=== PATIENT | female | born 1950 | race Caucasian/White ===

== ENCOUNTER 2020-05-19 13:19 | Inpatient (IN) | payer MEDICARE, OTHER ==
[~2020-05-19] VITALS: Ht 172.7 cm; Wt 66.5 kg
[2020-05-19] MEDS ORDERED: SODIUM CHLORIDE 0.9% 1,000 ML IV ONE ×2 (13:45)
[2020-05-19 14:40] LABS: Urine Bacteria MANY /hpf (None Seen); Urine Blood Negative /uL (Negative); Urine Mucus FEW (None Seen); Urine Specific Gravity 1.018 (1.001-1.035); Urine WBC 3 /hpf (0 - 5)
[2020-05-19 15:37] LABS: Basophils # (auto) 0.1 10 ^3/uL (0-0.2); Basophils % (auto) 0.7 % (0.0-2.0); Eosinophils # (auto) 0 10 ^3/uL (0-0.8); Eosinophils % (auto) 0.1 % (0.0-7.0); Hematocrit 41.4 % (36.0-46.0); Hemoglobin 13.7 g/dL (12.2-16.2); Lymphocytes # (auto) 0.6 10 ^3/uL (0.4-5.4); Lymphocytes % (auto) 7.1 % (10.0-50.0); Mean Corpuscular Hemoglobin 30.4 pg (28.0-32.0); Mean Corpuscular Hgb Conc. 33.1 g/dL (32.0-36.0); Mean Corpuscular Volume 91.7 fL (80.0-100.0); Monocytes # (auto) 0.7 10 ^3/uL (0-1.3); Monocytes % (auto) 7.8 % (0.0-12.0); Neutrophils # (auto) 7.5 10 ^3/uL (1.6-8.6); Neutrophils % (auto) 84.3 % (37.0-80.0); Nucleated Red Blood Cells % 0.3 %; Platelet Count (auto) 309 10^3/uL (140-450); Red Blood Cells 4.52 10^6/uL (4.0-5.20); Red Cell Distribution Width 15.6 % (11.8-14.3); White Blood Cell 8.9 10^3/uL (4.4-10.8)
[2020-05-19 15:57] LABS: INR 1.03 (0.9-1.15); Partial Thromboplastin Time 21.4 sec (23.0-31.2)
[2020-05-19 15:59] LABS: Albumin 3.1 g/dL (3.4-5.0); Calcium 8.7 mg/dL (8.5-10.1)
[2020-05-19 16:02] LABS: BUN/Creatinine Ratio 10.6; Bilirubin, Total 0.7 mg/dL (0.2-1.0); Total Protein 6.5 g/dL (6.4-8.2)
[2020-05-19 16:06] LABS: Potassium 2.9 mmol/L (3.5-5.1)
[2020-05-19] MEDS ORDERED: cefTRIAXone 1GM/50ML D5W 50 ML IV ONE (16:15)
[2020-05-19] MEDS: POTASSIUM CHL 20MEQ/100ML 100 ML IV SCH ×2 (16:28→22:51)
[2020-05-19] MEDS ORDERED: MORPHINE SULF INJ 2 MG/ML SYRINGE 1ML IV PRN ×2 (16:30→19:30)
[2020-05-19] MEDS ORDERED: NITROGLYCERIN 0.4 MG SL TAB SL PRN ×2 (16:30→19:30)
[2020-05-19] MEDS ORDERED: IOHEXOL 300 MG/ML 100ML BOTTLE IJ ONE (17:21)
[2020-05-19] MEDS ORDERED: POTASSIUM CHLORIDE 40 MEQ, LIDOCAINE 1% (LOCAL ANESTH.) 4 ML in SODIUM CHL 0.9% 250 ML IV ONE (18:00)
--- NOTE | 2020-05-19 18:08 | NUR ---
OBTAINED PATIENTS HISTORY AND ADMIT INFORMATION FROM JOSE RAMON. HE WILL CALL TOMORROW WITH LIST OF MEDICATIONS. [facility] HAS LIMITED INFORMATION ON HISTORY.
--- NOTE | 2020-05-19 18:11 | NUR ---
Telemetry admit from [facility]REIA admitted to Telemetry unit after SBAR received. Patient oriented to [facility] RN primary RN, unit, room, bed, and unit policies regarding patient care and visiting hours. Patient now on continuous telemetry monitoring, tele box # 4 and telemetry reading on arrival to unit is SR. Patient placed on bedside oxygen, weighed by bedscale and encouraged to call if they need something. All questions and concerns addressed, patient verbalized understanding.
[2020-05-19] MEDS ORDERED: TIZA4TAB3 PO (18:40)
[2020-05-19] MEDS ORDERED: METH-503 PO (18:40)
[2020-05-19] MEDS ORDERED: HYDR1TAB97 (18:40)
[2020-05-19] MEDS ORDERED: VALS1TAB58 PO (18:40)
[2020-05-19] MEDS ORDERED: TRAZ100T3 PO (18:40)
[2020-05-19] MEDS ORDERED: [UNRECOGNIZED DRUG - CODE] PO (18:40)
[2020-05-19] MEDS ORDERED: ALPR1TAB7 PO (18:40)
[2020-05-19] MEDS ORDERED: ENOXAPARIN SOD 80 MG/0.8ML SYRINGE SC ONE (19:15)
[2020-05-19] MEDS ORDERED: HYDROcodone-ACET 5/325MG TAB PO PRN (19:30)
[2020-05-19] MEDS ORDERED: metroNIDAZOLE 500MG/100ML 100 ML IV ONE (19:30)
[2020-05-19] MEDS ORDERED: DOCUSATE SOD 100 MG CAP PO PRN (19:30)
[2020-05-19] MEDS ORDERED: ALUM & MAG HYDROX-SIMETH LIQ(MAALOX) 30 ML PO PRN (19:30)
[2020-05-19] MEDS ORDERED: LORazepam 0.5 MG TAB PO PRN (19:30)
--- NOTE | 2020-05-19 20:10 | NUR ---
ROBERT (SON) CALLED AND GAVE THE LIST OF MEDICATIONS. CONTACT INFORMATION [phone]
--- NOTE | 2020-05-19 20:25 | NUR ---
PATIENT HAD BUNIONECTOMY TO LEFT FOOT. PICTURE TAKEN AT THIS TIME.
[2020-05-19] MEDS: SOD CHL 0.45% 1,000 ML IV SCH (20:45)
[2020-05-19] MEDS: GABAPENTIN 300 MG CAP PO SCH (21:36)
[2020-05-19] MEDS: FAMOTIDINE (10MG/ML) 2ML VL IV SCH (21:36)
[2020-05-19] MEDS: hydrALAZINE HCL 25 MG TAB PO PRN (21:40)
[2020-05-19 22:00] VITALS: BP 158/65
[2020-05-19] MEDS ORDERED: POTASSIUM CHL 20MEQ/100ML 100 ML IV ONE (22:30)
[2020-05-19] MEDS ORDERED: POTASSIUM CHL 20 Meq TABLET PO ONE (23:00)
[2020-05-19] MEDS ORDERED: SERT-274 PO (23:11)
[2020-05-19] MEDS ORDERED: FOLI1TAB6 PO (23:12)
[2020-05-19] MEDS ORDERED: FURO1TAB31 PO (23:12)
[2020-05-19] MEDS ORDERED: ROPI2TAB4 PO (23:13)
[2020-05-19] MEDS ORDERED: POTA10TA51 PO (23:14)
[2020-05-19] MEDS ORDERED: NORT10CA PO (23:14)
--- NOTE | 2020-05-20 00:50 | NUR ---
NOTIFIED CHARGE NURSE THAT PATIENT COVID RESULTS CAME BACK NEGATIVE X2. CHARGE NURSE ACKNOWLEDGED THIS BUT HAS NO BEDS AVAILABLE CURRENTLY.
[2020-05-20 05:00] VITALS: BP 147/66
[2020-05-20] MEDS: GABAPENTIN 300 MG CAP PO SCH ×2 (06:16→16:36)
[2020-05-20] MEDS: metroNIDAZOLE 500MG/100ML 100 ML IV SCH ×2 (06:16→14:58)
[2020-05-20 06:31] LABS: Potassium 3.7 mmol/L (3.5-5.1)
[2020-05-20 06:39] LABS: BUN/Creatinine Ratio 10.9; Calcium 8.4 mg/dL (8.5-10.1); Magnesium 2.3 mg/dL (1.6-2.6)
--- NOTE | 2020-05-20 07:20 | NUR ---
OPENING NOTE ASSUMED CARE OF PT. ALERT AND ORIENTED. NO S/S OF SOB/DISTRESS NOTED. BED SET TO LOWEST POSITION/LOCKED. BEDSIDE RAILS UP X2. CALL LIGHT WITHIN REACH. BED ALARM ON FOR SAFETY. INSTRUCTED PT TO CALL FOR ASSISTANCE. UPDATE ON POC. PT VERBALIZED UNDERSTANDING. WILL CONTINUE TO MONITOR Q1HR AND PRN FOR CHANGES.
[2020-05-20 09:00] VITALS: BP 141/68
[2020-05-20] MEDS ORDERED: IOHEXOL 300 MG/ML 100ML BOTTLE IJ ONE (09:05)
[2020-05-20] MEDS ORDERED: POTASSIUM CHL 20 Meq TABLET PO SCH (10:00)
[2020-05-20] MEDS: FAMOTIDINE (10MG/ML) 2ML VL IV SCH (10:27)
[2020-05-20] MEDS: cefTRIAXone 1GM/50ML D5W 50 ML IV SCH (10:27)
[2020-05-20] MEDS: VALSARTAN 80 MG TAB PO SCH (10:28)
--- NOTE | 2020-05-20 11:12 | NUR ---
Nutrition Consult for food and drug interaction Spoke to pt over the phone d/t to pt is covid positive. Made pt aware of need to avoid alcohol intake while taking her medications. Pt was aware of this interaction already and was grateful for phone call reinforcing it.
[2020-05-20] MEDS: SOD CHL 0.45% 1,000 ML IV SCH (12:10)
[2020-05-20 13:00] VITALS: BP 143/84
[2020-05-20 17:00] VITALS: BP 149/72
[2020-05-20] MEDS: Ensure HIGH Protein Vanilla 8oz Bottle PO SCH (18:15)
--- NOTE | 2020-05-20 19:20 | NUR ---
Opening Shift Note Assumed care of patient, awake and alert. No S/S of distress/SOB or pain. Instructed on POC and to call for assist PRN, will continue to monitor for changes Q1hr and PRN. Bed in low position and call light within reach. Patient is to be transferred to room 22A. report given to nurse by tere PEREZ
--- NOTE | 2020-05-20 19:31 | NUR ---
Per Edith telemonitor keep current telebox
--- NOTE | 2020-05-20 19:31 | NUR ---
Awaiting for room to be cleaned to transfer patient to room 22A
--- NOTE | 2020-05-20 20:20 | NUR ---
Received pt from [facility]. Pt displayed no sx of distress/SOB. Pt is on 2 L of O2. Pt came with a pacheco catheter for retention. Informed pt of POC and will assist PRN. Will continue to monitor
--- NOTE | 2020-05-20 20:24 | NUR ---
Patient transfer to room 22A no signs of sob distress or pain noted or reported. All belongings taken with patient
[2020-05-20 21:54] VITALS: BP 160/72
[2020-05-20] MEDS: PREGABALIN 25 MG CAP PO SCH ×2 (22:00→22:18)
[2020-05-20] MEDS: PREGABALIN CAPSULE 75 MG CAP PO SCH ×2 (22:00→22:19)
[2020-05-20] MEDS: traZODone HCL 50 MG TAB PO SCH (22:18)
[2020-05-20] MEDS: NORTRIPTYLINE HCL 10 MG CAP PO SCH (22:19)
[2020-05-20] MEDS: metroNIDAZOLE 500 MG TAB PO SCH (22:19)
[2020-05-20] MEDS: MORPHINE SULF INJ 2 MG/ML SYRINGE 1ML IV PRN (22:20)
[2020-05-20] MEDS ORDERED: LORazepam 2MG/ML-1ML VIAL IV PRN (23:15)
[2020-05-21] MEDS: ONDANSETRON HCL 4 MG/2 ML VIAL IV PRN ×5 (04:16→23:11)
[2020-05-21] MEDS: MORPHINE SULF INJ 2 MG/ML SYRINGE 1ML IV PRN ×2 (04:17→09:15)
[2020-05-21] MEDS: metroNIDAZOLE 500 MG TAB PO SCH ×3 (05:50→22:21)
[2020-05-21] MEDS: Ensure HIGH Protein Vanilla 8oz Bottle PO SCH ×3 (08:00→18:00)
--- NOTE | 2020-05-21 08:00 | NUR ---
Morning note Patient resting in bed with even and unlabored respirations, no distress noted. Instructed patient on POC, fall precautions and to call for assistance as needed. patient verbalized understanding. Fall precautions in place with call light within reach. Patient has personal shoe in place to the left foot. Patient stated "I wear the shoe all the time because 3 months ago I had surgery to have a bunion removed from my big toe and to have my hammer toe fixed. I wear the shoe to give my foot support and to protect it."
[2020-05-21 09:00] VITALS: BP 153/60
[2020-05-21] MEDS: cefTRIAXone 1GM/50ML D5W 50 ML IV SCH (09:15)
[2020-05-21] MEDS: FAMOTIDINE (10MG/ML) 2ML VL IV SCH (09:15)
[2020-05-21] MEDS: hydrALAZINE HCL 25 MG TAB PO PRN ×2 (09:26→17:08)
[2020-05-21] MEDS: VALSARTAN 80 MG TAB PO SCH (09:26)
[2020-05-21] MEDS: SERTRALINE HCL 50 MG TAB PO SCH (09:27)
[2020-05-21] MEDS: ACETAMINOPHEN 325 MG TAB PO PRN ×2 (09:27→17:14)
[2020-05-21] MEDS: PREGABALIN CAPSULE 75 MG CAP PO SCH ×2 (09:34→22:21)
[2020-05-21] MEDS: PREGABALIN 25 MG CAP PO SCH ×2 (09:34→22:21)
--- NOTE | 2020-05-21 10:00 | NUR ---
Ice pack provided for comfort Patient requested ice back for headache.
--- NOTE | 2020-05-21 10:15 | NUR ---
PT DECLINED P.T. BECAUSE OF NAUSEA AND HEADACHE.
--- NOTE | 2020-05-21 10:22 | NUR ---
Faxed transfer to [facility] packet to [facility] and [facility]
--- NOTE | 2020-05-21 10:35 | NUR ---
Called [facility], spoke with Aimee confirmed they do have Neurosurgery services, faxed Transfer to [facility] packet to [facility].
--- NOTE | 2020-05-21 11:02 | NUR ---
MD was at bedside - Dr. Taveras POC discussed with MD. Notified MD RE: patient's report of pain & nausea. MD verbalized understanding. MD to review PRN pain and anti-nausea medications.
--- NOTE | 2020-05-21 11:16 | NUR ---
RE: Neurontin Notified Dr. Taveras that patient has stopped taking Neurontin per patient. MD verbalized understanding. Order received and read back to verify.
--- NOTE | 2020-05-21 11:25 | NUR ---
Rec'd call from Tyra at [facility], she rec'd my packet and is checking with their neurosurgeon for possible transfer. Tyra will call me back.
--- NOTE | 2020-05-21 11:52 | NUR ---
Rec'd call from Olivia at [facility], they rec'd the packet, provided additional information and they are working on seeing if they can accept this patient.
--- NOTE | 2020-05-21 12:09 | NUR ---
Rounding Patient resting in bed with eyes closed; respirations even and unlabored, no distress noted. Call light within reach.
[2020-05-21 12:30] VITALS: BP 137/87
--- NOTE | 2020-05-21 13:25 | NUR ---
POC discussed with Dr. Zari MANUEL to contact Dr. Taveras with his recommendations.
--- NOTE | 2020-05-21 14:03 | NUR ---
Rec'd call from Natali at [facility], she advises that ordering physician must call and get accepting Hospitalist/[facility] and [facility] Credit Clerk Neurosurgeon Dr. Barreto . Called Dr. Can advised of info, he requested info be given to his office. Hand delivered info to front office staff for Dr. Can.
--- NOTE | 2020-05-21 14:17 | NUR ---
RE: transfer Contacted Dr. Taveras RE: Dr. Hameed's recommendations and to receive update on POC. POC discussed with . Dr. Can to be paged per .
--- NOTE | 2020-05-21 14:20 | NUR ---
Dr. Can paged per Dr. Taveras request.
--- NOTE | 2020-05-21 14:22 | NUR ---
Spoke with patient, advised I am working on possibly finding her a bed at another hospital for HLOC, advised patient so far [facility] is the only one with a bed currently available, she advises she is agreeable to going there. Also advised that I am attempting at [place] and [facility] as well, per patient she would be ok with [facility] but not sure about [facility] as its far away. I was advised by Patients nurse that Dr. Hameed doesn't feel patient should be transferred, Dr. Hameed's recommendation to be discussed with Dr. Taveras.
[2020-05-21] MEDS: HYDROmorphone HCL 2 MG/ML VL IV PRN ×3 (14:42→23:11)
--- NOTE | 2020-05-21 14:45 | NUR ---
RE: IV IV removed with aseptic technique, catheter intact. Dressing applied. Patient tolerated well, no trauma to site. 22g IV started with aseptic technique. IV secured. IV education provided. Patient verbalized understanding. Bed in lowest locked position with call light within reach.
--- NOTE | 2020-05-21 15:22 | NUR ---
Spoke with Tyra at [facility], they have a bed/room for patient 8112, nurses station # [phone]. Spoke with patient advised there is a bed available at [facility], she is agreeable with transferring to that hospital if that's what we are recommending her to go.
--- NOTE | 2020-05-21 15:46 | NUR ---
Faxed Medicare form to [facility] for transport to [facility].
--- NOTE | 2020-05-21 16:10 | NUR ---
Called [facility] spoke with Wilman, set up transport, they will pick patient up in about 25 mins and transport to [facility]. Called floor nurse Maxine advised of order picker info
--- NOTE | 2020-05-21 16:20 | NUR ---
LYLY Pradahn advises that patient now wishes to go home on Hospice rather than another facility, called [facility] and cancelled transport. Called [facility] advised Tyra we will not need the bed any longer.
--- NOTE | 2020-05-21 16:21 | NUR ---
RE: transfer This RN notified of transfer and ETA of transportation. This RN notified patient of information. Patient stated "I spoke to my son. I want to go home. I don't want to go anywhere else. I don't want to be poked. I want to go home and be kept comfortable. I'm okay with the information that I've been given." Notified LYLY Pradhan, of patient's decision. Carolynn to rely information to [facility]. Notified Dr. Taveras of patient's decision. verbalized understanding. Orders received and read back to verify.
--- NOTE | 2020-05-21 16:27 | NUR ---
RE: services host Contacted [facility] Darnell, to notify of patient's request and MD order. Carie verbalized understanding.
[2020-05-21 16:41] VITALS: BP 153/70
--- NOTE | 2020-05-21 19:30 | NUR ---
Care endorsed/End of shift Patient resting in bed with even and unlabored respirations, no distress noted. Fall precautions in place with call light within reach. Care endorsed to ERICA Ramirez.
[2020-05-21 22:00] VITALS: BP 141/65
[2020-05-21] MEDS: traZODone HCL 50 MG TAB PO SCH (22:20)
[2020-05-21] MEDS: NORTRIPTYLINE HCL 10 MG CAP PO SCH (22:21)
[2020-05-22] MEDS: HYDROmorphone HCL 2 MG/ML VL IV PRN ×3 (04:52→14:21)
[2020-05-22 05:00] VITALS: BP 117/41
[2020-05-22] MEDS: metroNIDAZOLE 500 MG TAB PO SCH ×2 (05:47→14:20)
[2020-05-22 08:00] VITALS: BP 139/58
[2020-05-22] MEDS: Ensure HIGH Protein Vanilla 8oz Bottle PO SCH ×2 (08:56→14:21)
[2020-05-22] MEDS: cefTRIAXone 1GM/50ML D5W 50 ML IV SCH (08:59)
[2020-05-22 09:00] VITALS: BP 139/58
--- NOTE | 2020-05-22 09:25 | NUR ---
MD at bedside Dr. Hameed was in to see patient and MD left new orders.
[2020-05-22] MEDS ORDERED: DexAMETHasone 4 MG TAB PO SCH (10:00)
[2020-05-22] MEDS: VALSARTAN 80 MG TAB PO SCH (10:04)
[2020-05-22] MEDS: PREGABALIN CAPSULE 75 MG CAP PO SCH (10:05)
[2020-05-22] MEDS: PREGABALIN 25 MG CAP PO SCH (10:05)
[2020-05-22] MEDS: FAMOTIDINE (10MG/ML) 2ML VL IV SCH (10:06)
[2020-05-22] MEDS: SERTRALINE HCL 50 MG TAB PO SCH (10:06)
--- NOTE | 2020-05-22 10:27 | NUR ---
Dr. Fleming was in to see patient and MD left orders for patient discharge home with hospice after talking to patient.
[2020-05-22] MEDS: ACETAMINOPHEN 325 MG TAB PO PRN (10:28)
--- NOTE | 2020-05-22 12:09 | NUR ---
assessment Patient is a 70 year old female who is alert and oriented. Patients cognitive abilities are intact. Patients emotional state is stable. Prior to admission patient lived home with family and functioned independently. Patient informed me she is able to care for her own ADLs. Per patient she will return home to her prior living arrangements post discharge and family will transport her home. Patient informed me she has cancer and is ready for hospice. I informed patient I have a consult for hospice eval. I offered patient a list of medicare providers. Per patient she wants [facility]. Patient has signed choice letter and it has been placed in her chart. MD order has been sent to [facility]. Per Chleo at [facility] will meet with patient and her at bedside at 1230pm. Per patient she has a great support system. Patient is aware of her diagnosis and has accepted diagnosis. I informed patient she has a right to speak to a social security assessor regarding all care. I informed patient she has a right to participate in any and all discharge planning. Patient has a POA and advanced directive. Patient verbalized understanding and agreed to discharge plan. Addendum: 05/22/20 at 1221 by Ginger GOULD Amended: Links added.
--- NOTE | 2020-05-22 12:30 | NUR ---
Staff of [facility] was in to see patient. Patient's came in with hospice staff to patient's room. Patient will be shceduled for later picking table worker and will notify us about details of transport.
[2020-05-22 13:00] VITALS: BP 120/64
--- NOTE | 2020-05-22 13:19 | NUR ---
re-assessment Patient and her have signed consents. Patient will be transported home at 4pm by [facility]. Patient agreed to discharge plan home on hospice. Jerson MALDONADO has been notified. Addendum: 05/22/20 at 1323 by Ginger GOULD Amended: Links added.
--- NOTE | 2020-05-22 16:40 | NUR ---
Discharge instructions given as ordered. Encourage to follow up with hospice MD as instructed. All questions and concerns addressed. Patient verbalized understanding. Medication reconciliation form completed and copy given to patient.. IV and pacheco catheter kept and patient will decide later if she still wanted the pacheco catheter. Telemetry unit returned to ICU. Patient left per w/c with [facility] with all personal belongings, accompanied by transport staff. No distress noted at time of departure.
== END 2020-05-22 16:40 | disposition hospice, home (50) | DRG 54 ==
LOC: ER 13:19 → TELE 13:20 → TELE-EAST 18:24 → TELE-CENTR 05-20 20:28
PROVIDERS: ADMIT Hospitalist; ATTEND Internal Medicine
DX: C79.31 Secondary malignant neoplasm of brain (principal); G93.41 Metabolic encephalopathy; I21.A1 Myocardial infarction type 2; E44.1 Mild protein-calorie malnutrition; N39.0 Urinary tract infection, site not specified; C78.00 Secondary malignant neoplasm of unspecified lung; E87.6 Hypokalemia; K52.9 Noninfective gastroenteritis and colitis, unspecified; G62.9 Polyneuropathy, unspecified; F41.9 Anxiety disorder, unspecified; F32.9 Major depressive disorder, single episode, unspecified; C80.1 Malignant (primary) neoplasm, unspecified; E83.51 Hypocalcemia; F17.200 Nicotine dependence, unspecified, uncomplicated; G43.909 Migraine, unspecified, not intractable, without status migrainosus; Z20.828 Contact with and (suspected) exposure to other viral communicable diseases; G89.29 Other chronic pain; I10 Essential (primary) hypertension; M06.9 Rheumatoid arthritis, unspecified; M19.90 Unspecified osteoarthritis, unspecified site; Z74.01 Bed confinement status; Z82.49 Family history of ischemic heart disease and other diseases of the circulatory system; Z85.028 Personal history of other malignant neoplasm of stomach; Z90.49 Acquired absence of other specified parts of digestive tract; Z98.84 Bariatric surgery status
CPT/HCPCS: 36415; 70450; 70553; 71045; 74177; 80048; 80053; 80061; 81001; 82105; 83036; 83735; 84484; 85025; 85610; 85730; 87040; 87045; 87086; 87088; 87186; 87426; 87427; 87493; 93005; 96365; 96375; G0378; J0696; J2001; J2405; J3480; J3490